=== PATIENT | male | born 1960 | race Caucasian/White ===

== ENCOUNTER → 2016-05-24 | Outpatient (CLI) | payer BC ==
[~2016-05-24] MED LIST: ATOR-22 PO; FLUT0.15 NAE; HYDR-5688 PO; LORA10TA57 PO; LRT5 PO; OXYC1TAB3 PO; PRLSR20 PO; SIMV20TA2 PO
--- NOTE | 2016-05-24 09:44 | DIAGNOSTIC IMAGING REPORT ---
Limited abdominal ultrasound ABDOMEN FOR HERNIA CLINICAL HISTORY: AB PAIN hernia TECHNIQUE: Real-time ultrasound COMPARISON STUDY: None FINDINGS: reducible fat-containing right inguinal hernia. No evidence of bowel containment. No evidence for incarceration. IMPRESSION: Reducible fat-containing right inguinal hernia Electronically signed by: Sharath Hughes M.D. 05/24/2016 9:42 AM Dictated Date/Time: 05/24/2016 9:41 AM
== END | disposition home or self-care (01) ==
LOC: C.ULTR 09:01
PROVIDERS: ATTEND Family Medicine
DX: K40.90 Unilateral inguinal hernia, without obstruction or gangrene, not specified as recurrent (principal)

== ENCOUNTER → 2016-06-04 | Day surgery (SDC) | payer BC ==
[2016-05-28 11:42] VITALS: Ht 177.8 cm; Wt 77.3 kg
[~2016-06-04] VITALS: Ht 177.8 cm; Wt 77.3 kg
[~2016-06-04] MED LIST changes: +ATROPINE SULFATE 0.1 MG/ML 5ML SYR IV PRN; +CEFAZOLIN 2000 MG/60 ML D5W IV SCH; +DEXAMETHASONE SOD INJ 4 MG/ML VIAL ONE; +FENTANYL CITRATE INJ 50 MCG/1 ML 2 ML VIAL ONE; +HEPARIN SOD 5000 UNIT/0.5 ML CARP SQ SCH; +HYDROCODONE/ACETAMOPHEN 5/325MG TAB PO PRN; +IBUPROFEN 600 MG TAB PO PRN; +KETOROLAC TROMETHAMINE 30 MG/ML VIAL IV. PRN; +LABETALOL HCL IV 5 MG/ML 20ML IV PRN; +LACTATED RINGER'S 1000ML 1,000 ML IV SCH; +LIDOCAINE HCL 2% 2 ML VIAL (20MG/ML) ONE; -LRT5 PO; +MEPERIDINE HCL 25 MG/ML CARP IV PRN; +MIDAZOLAM HCL 1 MG/ML 2ML VIAL ONE; +ONDANSETRON INJ 2 MG/ML 2 ML VIAL IV PRN; +ONDANSETRON INJ 2 MG/ML 2 ML VIAL ONE; -PRLSR20 PO; +PROPOFOL IV EMULSION 10 MG/ML 20 ML VIAL IV ONE; +SODIUM CHLORIDE 0.9% 1000ML 1,000 ML IV SCH
--- NOTE | 2016-06-04 06:48 | History & Physical Bridge Note ---
H&P Re-Evaluation Bridge Note: I have examined the patient, reviewed the History & Physical and in the interval since the performance of the History & Physical I have noted the following changes of clinical significance: No changes noted
--- NOTE | 2016-06-04 06:49 | Discharge Instructions ---
Discharge Instructions Admission Reason for Admission: Right Inguinal Hernia Discharge Discharge Diagnosis / Problem: Right Inguinal Hernia Discharge Goals Goal(s): Decrease discomfort, Improve function Activity Recommendations Activity Limitations: as noted below Lifting Limitations: no more than 10 pounds Exercise/Sports Limitations: until after follow-up appointment May Resume Sexual Activity: after follow-up appointment Shower/Bathe: tomorrow . Instructions / Follow-Up Instructions / Follow-Up Please follow-up with Dr. Herron in the office in 1-2 weeks. Current Hospital Diet Patient's current hospital diet: Discharge Diet Recommended Diet: Regular Diet Pending Studies Studies pending at discharge: no Medical Emergencies . Who to Call and When: Medical Emergencies: If at any time you feel your situation is an emergency, please call 911 immediately. . Non-Emergent Contact Non-Emergency issues call your: Primary Care Provider, Surgeon Call Non-Emergent contact if: temperature is above 101, your pain is not controlled, wound has increased drainage, wound has increased redness . "Provider Documentation" section prepared by Chelo Ley. VTE Core Measure Inpt VTE Proph given/why not?: Unfractionated heparin SQ, SCD's
[2016-06-04] MEDS: BUPIVACAINE/EPINEPHRINE 0.5% MPF 1:200,000 30 ML VIAL ONE ×2 (07:52→08:11)
--- NOTE | 2016-06-04 08:28 | [facility] Operative Report ---
Operative Report Operative Date Jun 04, 2016. Pre-Operative Diagnosis Right Inguinal Hernia Post-Operative Diagnosis large direct right inguinal hernia Procedure(s) Performed open right inguinal hernia repair with mesh Surgeon Dr. Gerardo Herron Welfare Investigator Surgeon(s) AARON Ellis Estimated Blood Loss 15 cc Findings large right inguinal hernia Specimens None Anesthesia general /LMA Complication(s) None Disposition Recovery Room / PACU I attest to the content of the Intraoperative Record and any orders documented therein. Any exceptions are noted below.
[2016-06-04] MEDS: FENTANYL CITRATE INJ 50 MCG/1 ML 2 ML VIAL IV PRN ×2 (08:49→09:05)
--- NOTE | 2016-06-04 08:56 | OPERATIVE REPORT ---
DATE OF OPERATION: 06/04/2016 PREOPERATIVE DIAGNOSIS: Right inguinal hernia. POSTOPERATIVE DIAGNOSIS: Large direct right inguinal hernia. PROCEDURES: Open right inguinal hernia repair with plug and patch mesh. SURGEON: Dr. Herron. MACHINE SPLITTER: Chelo Ley PA-C. ESTIMATED BLOOD LOSS: Approximately 15 mL. COMPLICATIONS: No immediate. ANESTHESIA: General with laryngeal mask airway. OPERATIVE NOTE: After informed consent was obtained, the patient was taken to the operating suite and placed in supine position. After successful intubation, the right groin was shaved and sterilely prepped and draped in usual fashion. An inguinal incision was made with a 10 blade scalpel and carried down through the soft tissue using electrocautery. The external oblique aponeurosis was skeletonized and a small incision with a new blade was made in it. Metzenbaum scissors were used to extend this incision distally through the external ring as well as for several centimeters proximally. Once in the inguinal canal, we were able to bluntly dissect the cord and cord structures away from surrounding tissue. I was able to bluntly elevate the cord structures off the pubic bone with blunt finger and place the Bernard around it. As soon as we did this, we noted a large direct inguinal hernia bulging through the floor of the canal. We did inspect the cord and cord structures and I did not see any evidence of a hernia sac within the cord structures. Because of the large nature I decided to use a plug and patch technique. We used a polypropylene plug to put into the defect and secured it to surrounding musculature using interrupted 0 Ethibond sutures. We then used a lombardi holed piece of polypropylene as an onlay. We secured it distally to River's ligament laterally along the shelving portion of Poupart's ligament and medially along the midline musculature. The "arms" of the mesh were wrapped around behind the cord structures and secured to underlying muscle. At the end of procedure the mesh laid tension free and without impinging on the cord. We did a thorough irrigation. There was adequate hemostasis. We did inject some Marcaine around the edges of the mesh for postoperative analgesia. We then closed the external oblique aponeurosis using 2-0 Vicryl in a running fashion. Soft tissue was irrigated and closed using 3-0 Vicryl and skin closed using 4-0 Monocryl. Some additional Marcaine was injected around the skin incision and Dermabond glue was used as a dressing. The patient was awakened, extubated, and transferred to recovery in stable condition. I attest to the content of the Intraoperative Record and any orders documented therein. Any exceptio ns are noted below.
[2016-06-04 09:25] VITALS: TEMP 36.2
[2016-06-04 09:45] VITALS: BP 128/81; PULSE 67; O2SAT 97
--- NOTE | 2016-06-04 09:58 | Anesthesia Progress Nt - [facility] ---
Anesthesia Post Op Note Date & Time Jun 04, 2016 at 09:58 Vital Signs Pain Intensity: 4.0 Vital Signs Past 12 Hours Date Time Temp Pulse Resp B/P Pulse Ox O2 Delivery O2 Flow Rate FiO2 06/04/16 09:45 67 16 128/81 97 Room Air 06/04/16 09:25 36.2 70 16 146/99 98 Room Air 06/04/16 09:13 124/74 06/04/16 09:12 61 9 06/04/16 09:12 61 9 98 06/04/16 09:10 36.4 61 14 132/80 100 Room Air 06/04/16 09:08 132/80 06/04/16 09:07 63 22 06/04/16 09:07 65 22 99 06/04/16 09:06 63 24 99 06/04/16 09:06 63 24 06/04/16 09:03 128/77 06/04/16 09:01 60 10 99 06/04/16 09:01 61 10 06/04/16 09:00 63 13 99 06/04/16 09:00 62 13 06/04/16 08:58 125/76 06/04/16 08:55 59 19 06/04/16 08:55 59 19 100 06/04/16 08:54 58 10 100 06/04/16 08:54 58 10 06/04/16 08:53 121/68 06/04/16 08:49 56 3 06/04/16 08:49 56 3 100 06/04/16 08:48 107/77 06/04/16 08:44 57 0 06/04/16 08:44 58 0 100 06/04/16 08:43 127/79 06/04/16 08:39 55 14 100 06/04/16 08:39 56 14 06/04/16 08:38 130/77 06/04/16 08:34 60 6 06/04/16 08:34 60 6 100 06/04/16 08:33 56 12 122/76 100 06/04/16 08:33 55 12 06/04/16 08:28 57 6 06/04/16 08:28 58 6 116/70 100 06/04/16 08:24 36.4 70 20 127/74 99 Mask 8 06/04/16 08:24 135/66 06/04/16 08:23 65 12 100 06/04/16 08:23 67 12 06/04/16 06:25 36.5 60 18 124/76 98 Room Air Notes Mental Status: alert / awake / arousable, participated in evaluation Pt Amnestic to Procedure: Yes Nausea / Vomiting: adequately controlled Pain: adequately controlled Airway Patency, RR, SpO2: stable & adequate BP & HR: stable & adequate Hydration State: stable & adequate Anesthetic Complications: no major complications apparent
== END | disposition home or self-care (01) ==
LOC: X.SURG 06:11
PROVIDERS: ATTEND Surgery
DX: K40.90 Unilateral inguinal hernia, without obstruction or gangrene, not specified as recurrent (principal); E78.5 Hyperlipidemia, unspecified; Z88.8 Allergy status to other drugs, medicaments and biological substances

== ENCOUNTER 2016-12-11 09:48 | Emergency (ER) | payer BC ==
[~2016-12-11] VITALS: Ht 175.3 cm; Wt 79.4 kg
[~2016-12-11 09:48] MED LIST changes: -ATOR-22 PO; -ATROPINE SULFATE 0.1 MG/ML 5ML SYR IV PRN; -CEFAZOLIN 2000 MG/60 ML D5W IV SCH; -DEXAMETHASONE SOD INJ 4 MG/ML VIAL ONE; -FENTANYL CITRATE INJ 50 MCG/1 ML 2 ML VIAL ONE; -FLUT0.15 NAE; -HEPARIN SOD 5000 UNIT/0.5 ML CARP SQ SCH; -HYDR-5688 PO; -HYDROCODONE/ACETAMOPHEN 5/325MG TAB PO PRN; -IBUPROFEN 600 MG TAB PO PRN; -KETOROLAC TROMETHAMINE 30 MG/ML VIAL IV. PRN; -LABETALOL HCL IV 5 MG/ML 20ML IV PRN; -LACTATED RINGER'S 1000ML 1,000 ML IV SCH; -LIDOCAINE HCL 2% 2 ML VIAL (20MG/ML) ONE; -LORA10TA57 PO; -MEPERIDINE HCL 25 MG/ML CARP IV PRN; -MIDAZOLAM HCL 1 MG/ML 2ML VIAL ONE; -ONDANSETRON INJ 2 MG/ML 2 ML VIAL IV PRN; -ONDANSETRON INJ 2 MG/ML 2 ML VIAL ONE; -OXYC1TAB3 PO; -PROPOFOL IV EMULSION 10 MG/ML 20 ML VIAL IV ONE; -SODIUM CHLORIDE 0.9% 1000ML 1,000 ML IV SCH
[2016-12-11 09:59] VITALS: TEMP 36.4; Ht 175.3 cm; Wt 79.4 kg
[2016-12-11] MEDS ORDERED: ONDANSETRON INJ 2 MG/ML 2 ML VIAL IV STA (10:16)
[2016-12-11] MEDS ORDERED: MoRPHine SULFATE 4 MG/ML 1 ML CARP\\VIAL IV STA (10:16)
[2016-12-11] MEDS ORDERED: SODIUM CHLORIDE 0.9% 1000ML 1,000 ML IV STA (10:16)
[2016-12-11] MEDS ORDERED: FLUT0.15 NAE (10:23)
[2016-12-11] MEDS ORDERED: LORA10TA57 PO (10:23)
[2016-12-11 10:33] LABS: BASO % 0.3 %; BASO ABS # 0.02 K/uL (0-0.2); COMPLETE YES; EOS % 1.5 %; HEMATOCRIT 45.6 % (42-52); IG% 0.2 %; LYMPH % 38.5 %; LYMPH ABS # 2.49 K/uL (1.2-3.4); MEAN CELL VOLUME 88.9 fL (80-100); MEAN CORPUSCULAR HEMOGLOBIN 31.6 pg (25-34); MEAN CORPUSCULAR HGB CONC 35.5 g/dl (32-36); MEAN PLATELET VOLUME 11.3 fL (7.4-10.4); MONO % 7.4 %; NEUT % 52.1 %; PLATELET COUNT 136 K/uL (130-400); RED BLOOD COUNT 5.13 M/uL (4.7-6.1); WHITE BLOOD COUNT 6.46 K/uL (4.8-10.8)
--- NOTE | 2016-12-11 10:40 | EMERGENCY ROOM VISIT NOTE ---
History Report prepared by Shauna: Jose Juan Ly Under the Supervision of: Dr. Gayathri Valdes M.D. First contact with patient: 10:16 Chief Complaint: ABDOMINAL PAIN Stated Complaint: PAIN R SIDE TO FRONT ABD Nursing Triage Summary: right side flank pain radiates into abdomen and groin. History of Present Illness The patient is a 56 year old male who presents to the Emergency Room with complaints of constant, lower abdominal pain beginning 2 hours ago. The patient states that his pain was sudden and started in his right lower quadrant. He reports that it radiates to the middle of his abdomen and right flank. The patient notes that he urinated 30 minutes before the onset and had a normal bowel movement just before. He states that he did not eat much last night. The patient reports that he was nauseous upon enter the ED. The patient denies a history of a cholecystectomy, hematochezia, hematuria, diarrhea, and dysuria. Source of History: patient Onset: 2 hours ago Position: abdomen (lower) Timing: constant Associated Symptoms: + nausea, No hematochezia, No diarrhea Note: Associated symptoms: right flank pain Denies: hematuria and dysuria. Review of Systems See HPI for pertinent positives & negatives. A total of 10 systems reviewed and were otherwise negative. Past Medical & Surgical Medical Problems: (1) Hernia Family History Cancer Social History Smoking Status: Never Smoker Smokeless Tobacco Use: No Alcohol Use: occasionally Marital Status: Housing Status: lives with family Occupation Status: retired Current/Historical Medications Scheduled Fluticasone Propionate (Nasal) (Flonase Allergy Relief), 2 SPRAYS CAREY DAILY Simvastatin (Zocor), 20 MG PO QPM Scheduled PRN Loratadine & Pseudoephedrine (Claritin-D 24 Hour), 1 TAB PO DAILY PRN for Oxycodone Immediate Rel Tab (Roxicodone Ir), 1-2 TAB PO Q4H PRN for Severe Pain Allergies Coded Allergies: Erythromycin (Verified Allergy, Unknown, GI UPSET, 12/11/16) Lovastatin (Verified Allergy, Unknown, muscle aches, 12/11/16) Physical Exam Vital Signs Date Time Temp Pulse Resp B/P (MAP) Pulse Ox O2 Delivery O2 Flow Rate FiO2 12/11/16 12:48 70 18 154/87 99 12/11/16 11:15 70 18 154/87 99 Room Air 12/11/16 10:56 64 12/11/16 09:59 36.4 73 18 160/91 98 Room Air Physical Exam Vital signs reviewed. General: Well-appearing 56 year old male, in no significant distress. HEENT: No scleral icterus, PERRLA, neck supple. Atraumatic. Cardiovascular: Regular rate and rhythm, no extra sounds. Pulmonary: Clear to auscultation bilaterally, normal work of breathing. Abdomen: Soft, nondistended, positive bowel sounds. Mildly tender to palpation over the right flank and right lower quadrant of the abdomen. Musculoskeletal: Atraumatic, no peripheral edema. No CVA tenderness. Neurologic: Patient awake alert and oriented x 3, full strength in all 4 extremities. Cranial nerves 2 through 12 grossly intact. Skin: Warm, dry, no rash Medical Decision & Procedures ER Provider Diagnostic Interpretation: CT results as stated below per my review and radiologist interpretation: ABD/PELVIS NO IV OR ORAL CONT CLINICAL HISTORY: 56 years-old Male presenting with R flank pain. TECHNIQUE: Multidetector CT of the abdomen and pelvis was performed without the use of intravenous contrast. IV contrast: None. A dose lowering technique was used consistent with the principles of ALARA (as low as reasonably achievable). COMPARISON: None. CT DOSE (mGy.cm): The estimated cumulative dose is 665.70 mGy.cm. FINDINGS: Premises Technician topogram: Unremarkable. Lung bases: Minimal dependent opacities likely atelectasis. Suggestion of mosaic attenuation in the left lower lobe, which could suggest small airways disease. Multichamber enlargement of the heart. No pericardial or pleural effusion. Liver: Normal morphology. Normal density. Biliary: No gross biliary ductal dilatation allowing for noncontrast technique. Normal gallbladder. Pancreas: Mild parenchymal atrophy of the pancreatic head. Spleen: Normal. Adrenal glands: Normal. Kidneys and ureters: Nonobstructing 2 mm calculus in the interpolar region the right kidney. Nonobstructing 1 to 2 mm calculus at the upper pole of the left kidney. Asymmetric right perinephric fat stranding. Asymmetric dilatation of the right renal collecting system. Mild dilatation of the right ureter with trace proximal periureteral fat stranding. Obstructing calculus at the right ureterovesical junction measuring 2 mm. Left ureter normal. Bladder: Normal. No bladder calculus. Pelvic organs: Prostate and seminal vesicles normal. Bowel: Normal appendix. No bowel obstruction. Nonspecific mild intermural fat deposition in the terminal ileum. Peritoneal cavity: No free fluid or intraperitoneal gas. Vasculature: Normal noncontrast appearance. Minimal atherosclerosis in the iliac arteries. Lymph nodes: No enlarged lymph nodes in the abdomen or pelvis. Abdominal wall: Normal. Musculoskeletal: Degenerative changes of the spine. Degenerative changes of the sacroiliac joints, right greater than left. IMPRESSION: 1. Obstructing 2 mm calculus at the right ureterovesical junction with resultant right hydroureteronephrosis. 2. Small nonobstructing bilateral renal calculi. Electronically signed by: Johnie Del Valle M.D. 12/11/2016 11:04 AM Dictated Date/Time: 12/11/2016 10:58 AM Laboratory Results 12/11/16 10:10 Red Blood Count 5.13, Mean Corpuscular Volume 88.9, Mean Corpuscular Hemoglobin 31.6, Mean Corpuscular Hemoglobin Concent 35.5, Mean Platelet Volume 11.3, Neutrophils (%) (Auto) 52.1, Lymphocytes (%) (Auto) 38.5, Monocytes (%) (Auto) 7.4, Eosinophils (%) (Auto) 1.5, Basophils (%) (Auto) 0.3, Neutrophils # (Auto) 3.36, Lymphocytes # (Auto) 2.49, Monocytes # (Auto) 0.48, Eosinophils # (Auto) 0.10, Basophils # (Auto) 0.02 12/11/16 10:10 Test 12/11/16 10:10 12/11/16 11:55 White Blood Count 6.46 K/uL (4.8-10.8) Red Blood Count 5.13 M/uL (4.7-6.1) Hemoglobin 16.2 g/dL (14.0-18.0) Hematocrit 45.6 % (42-52) Mean Corpuscular Volume 88.9 fL (80-100) Mean Corpuscular Hemoglobin 31.6 pg (25-34) Mean Corpuscular Hemoglobin Concent 35.5 g/dl (32-36) Platelet Count 136 K/uL (130-400) Mean Platelet Volume 11.3 fL (7.4-10.4) Neutrophils (%) (Auto) 52.1 % Lymphocytes (%) (Auto) 38.5 % Monocytes (%) (Auto) 7.4 % Eosinophils (%) (Auto) 1.5 % Basophils (%) (Auto) 0.3 % Neutrophils # (Auto) 3.36 K/uL (1.4-6.5) Lymphocytes # (Auto) 2.49 K/uL (1.2-3.4) Monocytes # (Auto) 0.48 K/uL (0.11-0.59) Eosinophils # (Auto) 0.10 K/uL (0-0.5) Basophils # (Auto) 0.02 K/uL (0-0.2) RDW Standard Deviation 42.6 fL (36.4-46.3) RDW Coefficient of Variation 13.1 % (11.5-14.5) Immature Granulocyte % (Auto) 0.2 % Immature Granulocyte # (Auto) 0.01 K/uL (0.00-0.02) Anion Gap 7.0 mmol/L (3-11) Est Creatinine Clear Calc Drug Dose 60.3 ml/min Estimated GFR () 65.6 Estimated GFR (Non- 56.6 BUN/Creatinine Ratio 12.4 (10-20) Calcium Level 9.4 mg/dl (8.5-10.1) Total Bilirubin 1.2 mg/dl (0.2-1) Direct Bilirubin 0.2 mg/dl (0-0.2) Aspartate Amino Transf (AST/SGOT) 23 U/L (15-37) Alanine Aminotransferase (ALT/SGPT) 31 U/L (12-78) Alkaline Phosphatase 64 U/L (45-117) Total Protein 8.3 gm/dl (6.4-8.2) Albumin 4.3 gm/dl (3.4-5.0) Urine Color YELLOW Urine Appearance CLEAR (CLEAR) Urine pH 6.0 (4.5-7.5) Urine Specific [place] 1.016 (1.000-1.030) Urine Protein NEG (NEG) Urine Glucose (UA) NEG (NEG) Urine Ketones NEG (NEG) Urine Occult Blood 2+ (NEG) Urine Nitrite NEG (NEG) Urine Bilirubin NEG (NEG) Urine Urobilinogen NEG (NEG) Urine Leukocyte Esterase NEG (NEG) Urine WBC (Auto) 0 /hpf (0-5) Urine RBC (Auto) 5-10 /hpf (0-4) Urine Hyaline Casts (Auto) 1-5 /lpf (0-5) Urine Epithelial Cells (Auto) 0-5 /lpf (0-5) Urine Bacteria (Auto) NEG (NEG) Laboratory results per my review. Medications Administered Medications (Trade) Dose Ordered Sig/Mindy Route Start Time Stop Time Status Last Admin Dose Admin Sodium Chloride 1,000 ml @ 999 mls/hr Q1H1M STAT IV 12/11/16 10:16 12/11/16 11:16 DC 12/11/16 10:24 999 MLS/HR Morphine Sulfate (MoRPHine SULFATE INJ) 4 mg NOW STAT IV 12/11/16 10:16 12/11/16 10:19 DC 12/11/16 10:24 4 MG Ondansetron HCl (Zofran Inj) 4 mg NOW STAT IV 12/11/16 10:16 12/11/16 10:19 DC 12/11/16 10:23 4 MG Fentanyl Citrate (Fentanyl Inj) 50 mcg NOW STAT IV 12/11/16 11:05 12/11/16 11:06 DC 12/11/16 11:14 50 MCG ED Course 1016: Ordered Zofran Inj 4mg IV, Morphine Sulfate 4mg IV, Sodium Chloride 1000 ml @ 999 mls/hr IV 1024: Past medical records reviewed. The patient was evaluated in room B04B. A complete history and physical examination was performed. 1105: Ordered Fentanyl Inj 50mcg IV 1225: Upon reevaluation, the patient appeared to have improvement of his symptoms. I discussed findings with him. He verbalized agreement of the treatment plan. The patient was discharged home. Medical Decision Differential diagnosis: Etiologies such as renal colic, appendicitis, diverticulitis, mesenteric ischemia, aortic pathology, infections, inflammatory bowel disease, PUD, biliary pathology, UTI, as well as others were entertained. This patient was evaluated and appeared to be in no significant distress. IV access was obtained and laboratory work was drawn. 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 His hydrated with normal saline solution, given IV morphine and Zofran. CT scan abdomen and pelvis was performed and reveals a 2 mm distal right ureteral calculus that is obstructing. Patient required additional morphine for continued pain. Urinalysis reveals blood, no infection. On my reevaluation, I did speak with the patient regarding the findings. His pain had largely resolved. I suspect he has passed the stone. Patient was given a prescription for OxyIR to be used as needed if the pain returns. He has a follow-up appointment with his physician in several days. He will continue drink plan fluids and return to the ER for worsening of symptoms, fever or any medical concerns. Impression Primary Impression: Renal colic on right side Scribe Attestation The scribe's documentation has been prepared under my direction and personally reviewed by me in its entirety. I confirm that the note above accurately reflects all work, treatment, procedures, and medical decision making performed by me. Departure Information Dispostion Home / Self-Care Prescriptions Oxycodone Immediate Rel Tab (ROXICODONE IR) 5 Mg Tab 1-2 TAB PO Q4H Y for Severe Pain, #15 TAB Prov: Gayathri Valdes M.D. 12/11/16 Referrals David Pelayo D.O. (PCP) Forms Call Back Authorization, HOME CARE DOCUMENTATION FORM, IMPORTANT VISIT INFORMATION Patient Instructions My [facility] Additional Instructions Diagnosis: Renal colic Please drink plenty of clear fluids. Increase fluids. Ibuprofen 600 mg every 6 hours as needed for pain. Oxy IR 1-2 tablets every 4-6 hrs as needed for worse pain. No driving, working , or alcohol use with Oxy IR. Follow up with your this week for reevaluation. You may need a urology referral. Follow up sooner for fever >101, vomiting, or significant increase in pain not controlled with medication. Return to the ED for worsening of symptoms or any medical concerns.
[2016-12-11 10:55] LABS: BUN/CREATININE RATIO 12.4 (10-20); CALCIUM 9.4 mg/dl (8.5-10.1); CREATININE 1.4 mg/dl (0.60-1.40); POTASSIUM 3.6 mmol/L (3.5-5.1)
[2016-12-11] MEDS ORDERED: FENTANYL CITRATE INJ 50 MCG/1 ML 2 ML VIAL IV STA (11:05)
--- NOTE | 2016-12-11 11:05 | DIAGNOSTIC IMAGING REPORT ---
ABD/PELVIS NO IV OR ORAL CONT CLINICAL HISTORY: 56 years-old Male presenting with R flank pain. TECHNIQUE: Multidetector CT of the abdomen and pelvis was performed without the use of intravenous contrast. IV contrast: None. A dose lowering technique was used consistent with the principles of ALARA (as low as reasonably achievable). COMPARISON: None. CT DOSE (mGy.cm): The estimated cumulative dose is 665.70 mGy.cm. 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 Lung bases: Minimal dependent opacities likely atelectasis. Suggestion of mosaic attenuation in the left lower lobe, which could suggest small airways disease. Multichamber enlargement of the heart. No pericardial or pleural effusion. Liver: Normal morphology. Normal density. Biliary: No gross biliary ductal dilatation allowing for noncontrast technique. Normal gallbladder. Pancreas: Mild parenchymal atrophy of the pancreatic head. Spleen: Normal. Adrenal glands: Normal. Kidneys and ureters: Nonobstructing 2 mm calculus in the interpolar region the right kidney. Nonobstructing 1 to 2 mm calculus at the upper pole of the left kidney. Asymmetric right perinephric fat stranding. Asymmetric dilatation of the right renal collecting system. Mild dilatation of the right ureter with trace proximal periureteral fat stranding. Obstructing calculus at the right ureterovesical junction measuring 2 mm. Left ureter normal. Bladder: Normal. No bladder calculus. Pelvic organs: Prostate and seminal vesicles normal. Bowel: Normal appendix. No bowel obstruction. Nonspecific mild intermural fat deposition in the terminal ileum. Peritoneal cavity: No free fluid or intraperitoneal gas. Vasculature: Normal noncontrast appearance. Minimal atherosclerosis in the iliac arteries. Lymph nodes: No enlarged lymph nodes in the abdomen or pelvis. Abdominal wall: Normal. Musculoskeletal: Degenerative changes of the spine. Degenerative changes of the sacroiliac joints, right greater than left. IMPRESSION: 1. Obstructing 2 mm calculus at the right ureterovesical junction with resultant right hydroureteronephrosis. 2. Small nonobstructing bilateral renal calculi. Electronically signed by: Johnie Del Valle M.D. 12/11/2016 11:04 AM Dictated Date/Time: 12/11/2016 10:58 AM
[2016-12-11 12:23] LABS: URINE APPEARANCE CLEAR (CLEAR); URINE BILIRUBIN NEG (NEG); URINE COLOR YELLOW; URINE EPITHELIAL CELL AUTO 0-5 /lpf (0-5); URINE NITRITE NEG (NEG); URINE SPECIFIC GRAVITY 1.016 (1.000-1.030); UROBILINOGEN NEG (NEG); ZZUR CULT IF INDIC CLEAN CATCH NO
[2016-12-11 12:30] LABS: MANUAL MICROSCOPIC REQUIRED? NO; REVIEW REQ? NO
[2016-12-11] MEDS ORDERED: OXYC1TAB3 PO (12:41)
[2016-12-11 12:48] VITALS: BP 154/87; PULSE 70; O2SAT 99
== END 2016-12-11 12:51 | disposition home or self-care (01) ==
LOC: C.EDB 09:49
DX: N23 Unspecified renal colic (principal); Z80.9 Family history of malignant neoplasm, unspecified; Z79.899 Other long term (current) drug therapy

== ENCOUNTER → 2017-07-12 | Outpatient (CLI) | payer OTHER ==
[~2017-07-12] MED LIST changes: +FLUT0.15 NAE; +LORA-749 PO
[2017-07-12 18:23] LABS: BLOOD UREA NITROGEN 21 mg/dl (7-18); CALCIUM 9.4 mg/dl (8.5-10.1); CARBON DIOXIDE 27 mmol/L (21-32); CREATININE 1.03 mg/dl (0.60-1.40); GLUCOSE 90 mg/dl (70-99); POTASSIUM 4.5 mmol/L (3.5-5.1); SODIUM 138 mmol/L (136-145)
== END | disposition home or self-care (01) ==
LOC: C.LAB 17:19
PROVIDERS: ATTEND Student in an Organized Health Care Education/Training Program
DX: R42 Dizziness and giddiness (principal)